=== PATIENT | male | born 1950 | race Caucasian/White ===

== ENCOUNTER 2022-07-01 05:31 | Day surgery (SDC) | payer OTHER ==
[~2022-07-01] VITALS: Ht 185.4 cm; Wt 95.3 kg
[~2022-07-01 05:31] MED LIST: COUMA PO; LITH PO
== END 2022-07-01 11:15 | disposition home or self-care (01) ==
LOC: CIR.AMB 05:31
PROVIDERS: ATTEND Orthopaedic Surgery
DX: M75.121 Complete rotator cuff tear or rupture of right shoulder, not specified as traumatic (principal); M24.111 Other articular cartilage disorders, right shoulder; M75.21 Bicipital tendinitis, right shoulder; Z20.822 Contact with and (suspected) exposure to COVID-19